=== PATIENT | male | born 1980 | race Two or more races ===

== ENCOUNTER 2019-09-24 03:38 | Emergency (ER) | payer BC, SELFPAY ==
--- OUTSIDE RECORDS SUMMARY | 2019-09-24 03:40 | XMS REPORT | Continuity of Care Document ---
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 Mur taza Mussaji Nongonococcal Active Problem 02/14/2019 Murta za urethritis (EMORY) Mus kelley due to Chlamydia trachomatis BMI Active Problem 02/14/2019 Danial 25.0-25.9,adult Muss raine Folliculitis Active Diagnosis 12/26/2018 Murtaz a Mussaji Screening for STD Active Diagnosis 12/26/2018 M urtaza (sexually Mussaji transmitted disease) BMI Active Diagnosis 12/26/2018 Danial 26.0-26.9,adult Muss raine Facial rash Active Diagnosis 12/26/2018 Danial Mussaji Elevated blood Active Diagnosis 12/21/2017 Murt aza pressure (not Mussaj i hypertension) Dermatitis Active Diagnosis 12/21/2017 Danial Mussaji Penile lesion Active Diagnosis 02/14/2019 Murta za Mussaji Itching with Active Diagnosis 02/14/2019 Murtaz a irritation Mussaji Rash Active Diagnosis 02/14/2019 Dainal Mussaji BMI Active Diagnosis 02/14/2019 Danial 27.0-27.9,adult Muss raine Medications Medication Details Route Status Patient Ordering Order Source Instructions Provider Date Clotrimazole-Be 1 application Externally Active 1-0.05 % Mussaji Danial tamethasone to affected Externally Alvarez ji area Twice a day Acyclovir 1 tablet Orally Active 400 MG Orally Mussaji Danial three times a Mussaji day (tid) Bactroban 1 application Externally Active 2 % Externally Mussaji Danial to affected Three times a Mussaj i area day Triamcinolone 1 application Externally Active 0.1 % Mussaji M urtaza Acetonide to affected Externally Mussaji area twice a day (bid) Azithromycin 2 tablets Orally Active 500 MG Orally Mussaji Mur taza all at once Mussaji Valacyclovir 2 tablet Orally Active 1 GM Orally Mussaji Murtaz a HCl Q12 hrs Mussaji Medrol (Benjamin) as directed Orally Active 4 mg Orally as Mussaji Danial directed Mussaji Benadryl 1 capsule as Orally Active 25 MG Orally Mussaji Murta za needed twice a day Mussaji (bid) as needed (prn) Nystatin-Triamc 1 application Externally Active 808169-4.1 Mussaji Danial inolone to affected UNIT/GM Mussaji area Externally Twice a day Allergies, Adverse Reactions, Alerts Substance Category Reaction Severity Reaction Status Date Comments S ource type Reported N.K.D.A. Adverse Info Not Adverse Murt aza Reaction Available Reaction 9 Muss raine Immunizations No Data Provided for This Section Results No Data Provided for This Section Pathology Reports No Data Provided for This Section Diagnostic Reports No Data Provided for This Section Consultation Notes No Data Provided for This Section Discharge Summaries No Data Provided for This Section History and Physicals No Data Provided for This Section Vital Signs Vital Sign Value Date Comments Source Heart Rate 78 02/01/2019 Danial Mussaji Diastolic (mm Hg) 78 02/01/2019 Danial Mu ssaji Systolic (mm Hg) 135 02/01/2019 Danial Mus kelley Temperature Oral (F) 98 F 02/01/2019 Danial Mussaji Weight 165 02/01/2019 Danial Mussaji Height 65 02/01/2019 Danial Mussaji Heart Rate 78 12/17/2018 Danial Mussaji Diastolic (mm Hg) 88 12/17/2018 Danial Mu ssaji Systolic (mm Hg) 139 12/17/2018 Danial Mus kelley Temperature Oral (F) 98.5 F 12/17/2018 Danial Mussaji Weight 157 12/17/2018 Danial Mussaji Height 65 12/17/2018 Danial Mussaji Heart Rate 75 11/09/2017 Danial Mussaji Diastolic (mm Hg) 106 11/09/2017 Danial Mu ssaji Systolic (mm Hg) 163 11/09/2017 Danial Mus kelley Temperature Oral (F) 98.3 F 11/09/2017 Danial Mussaji Weight 156 11/09/2017 Danial Peterson Height 65 11/09/2017 Danial Peterson Encounters No Data Provided for This Section Procedures No Data Provided for This Section Assessment and Plan No Data Provided for This Section Plan of Care No Data Provided for This Section Social History No Data Provided for This Section Family History No Data Provided for This Section Advance Directives No Data Provided for This Section Functional Status No Data Provided for This Section
--- OUTSIDE RECORDS SUMMARY | 2019-09-24 03:41 | XMS REPORT ---
:1980 Author Organization [employer] Care Team Providers Name Role Phone Danial Peterson Provider Role Unavailable Allergies, Adverse Reactions, Alerts Substance Reaction Event Type N.K.D.A. Info Not Available Non Drug Allergy Problems Problem Type Condition Code Onset Dates Condition Statu s Problem Nongonococcal urethritis (EMORY) due 099.41 Active to Chlamydia trachomatis Assessment Elevated blood pressure (not R03.0 Active hypertension) Problem BMI 25.0-25.9,adult Z68.25 Active Assessment BMI 25.0-25.9,adult Z68.25 Active Assessment Dermatitis L30.9 Active Medications Medication Code Code Instructions Start End Status Dosage System Date Date Azithromycin [facility] 16237021721 500 MG Orally Active 2 tablets all at once Triamcinolone [facility] 07312440746 0.1 % Active 1 appl ication Acetonide Externally to affected twice a day area (bid) Vital Signs Date/Time: November 09, 2017 Cardiac Monitoring Heart Rate 75 /min Blood Pressure Diastolic 106 mm Hg Blood Pressure Systolic 163 mm Hg Temperature 98.3 F BMI 25.96 Index Weight 156 lbs Height 65 in Results No Known Results Summary Purpose [employer] Submission
--- OUTSIDE RECORDS SUMMARY | 2019-09-24 03:41 | XMS REPORT ---
:1980 Author Organization [employer] Care Team Providers Name Role Phone Danial Peterson Provider Role Unavailable Allergies, Adverse Reactions, Alerts Substance Reaction Event Type N.K.D.A. Info Not Available Non Drug Allergy Problems Problem Type Condition Code Onset Dates Condition Statu s Assessment Penile lesion N48.9 Active Problem Nongonococcal urethritis (EMORY) due 099.41 Active to Chlamydia trachomatis Problem BMI 25.0-25.9,adult Z68.25 Active Assessment HSV-1 infection B00.9 Active Assessment Itching with irritation L29.9 Acti ve Assessment Rash R21 Active Assessment BMI 27.0-27.9,adult Z68.27 Active Medications Medication Code Code Instructions Start End Status Dosage System Date Date Valacyclovir HCl ND 80206632606 1 GM Orally Q12 Act timmy 2 tablet hrs Medrol (Benjamin) NDC 0 4 mg Orally as Active as d irected directed Benadryl ND 69380089052 25 MG Orally Active 1 caps ule as twice a day needed (bid) as needed (prn) Bactroban ND 32438696519 2 % Externally Active 1 a pplication Three times a to affecte d day area Acyclovir ND 53255211640 400 MG Orally Active 1 ta blet three times a day (tid) Triamcinolone ND 71802785729 0.1 % Active 1 appl ication Acetonide Externally to affected twice a day area (bid) Nystatin-Triamci ND 31662652247 883625-7.1 Active 1 application nolone UNIT/GM to affected Externally area Twice a day Clotrimazole-Bet ND 64505143009 1-0.05 % Active 1 application amethasone Externally to affecte d Twice a day area Vital Signs Date/Time: Feb 01, 2019 Cardiac Monitoring Heart Rate 78 /min Blood Pressure Diastolic 78 mm Hg Blood Pressure Systolic 135 mm Hg Temperature 98 F BMI 27.45 Index Weight 165 lbs Height 65 in Results No Known Results Summary Purpose [employer] Submission
--- OUTSIDE RECORDS SUMMARY | 2019-09-24 03:41 | XMS REPORT ---
:1980 Author Organization [employer] Care Team Providers Name Role Phone Nicholas Danial Provider Role Unavailable Allergies, Adverse Reactions, Alerts Substance Reaction Event Type N.K.D.A. Info Not Available Non Drug Allergy Problems Problem Type Condition Code Onset Dates Condition Statu s Assessment HSV-1 infection B00.9 Active Problem Nongonococcal urethritis (EMORY) due 099.41 Active to Chlamydia trachomatis Problem BMI 25.0-25.9,adult Z68.25 Active Assessment Folliculitis L73.9 Active Assessment Screening for STD (sexually Z11.3 Active transmitted disease) Assessment BMI 26.0-26.9,adult Z68.26 Active Assessment Facial rash R21 Active Medications Medication Code Code Instructions Start End Status Dosage System Date Date Clotrimazole-Bet [facility] 33571049096 1-0.05 % Active 1 application amethasone Externally to affecte d Twice a day area Acyclovir ND 67113324498 400 MG Orally Active 1 ta blet three times a day (tid) Bactroban ND 35164841185 2 % Externally Active 1 a pplication Three times a to affecte d day area Triamcinolone ND 22810348676 0.1 % Active 1 appl ication Acetonide Externally to affected twice a day area (bid) Vital Signs Date/Time: Dec 17, 2018 Cardiac Monitoring Heart Rate 78 /min Blood Pressure Diastolic 88 mm Hg Blood Pressure Systolic 139 mm Hg Temperature 98.5 F BMI 26.12 Index Weight 157 lbs Height 65 in Results Name Result Date Reference Range Unit Abnormali ty Flag RPR, Rfx Qn RPR/Confirm TP ----RPR Non Reactive [id number] Non Reactive HSV 1 and 2-Specific Ab, IgG w/Rfx CT,NG, and TV, BERRY urine Summary Purpose eClinicalWorks Submission
[2019-09-24] MEDS ORDERED: LIDOCAINE 1% MPF 5 ML VIAL ONE (04:18)
[2019-09-24] MEDS ORDERED: MORPHINE 4 MG/ML SYR ONE ×2 (04:18→05:04)
[2019-09-24] MEDS ORDERED: TERBUTALINE SULF 1 MG/1ML ONE (04:19)
[2019-09-24] MEDS ORDERED: ONDANSETRON 4 MG/2 ML VIAL ONE (04:19)
[2019-09-24] MEDS ORDERED: NA CHLORIDE 0.9% 1,000 ML ONE ×2 (04:19→05:03)
[2019-09-24 04:34] LABS: Absolute Lymphocytes (CBC) 2.1 K/uL (0.7-4.9); Basophils % 0.8 % (0-1.3); Hematocrit 53.7 % (39.6-49.0); Lymphocytes % 25.3 % (15.3-44.8); MPV 8.2 fL (7.6-11.3); RBC Red Blood Cell Count 6.23 M/uL (4.33-5.43)
[2019-09-24 04:46] LABS: Albumin 4.9 g/dL (3.4-5.0); Bilirubin Total 1.3 mg/dL (0.2-1.0); Potassium 3.6 mmol/L (3.5-5.1); Protein, Total 7.7 g/dL (6.4-8.2)
[2019-09-24 05:08] LABS: Barbiturates NEGATIVE (NEGATIVE); Benzodiazepines NEGATIVE (NEGATIVE); Cocaine NEGATIVE (NEGATIVE); METHAMPHETAM NEGATIVE (NEGATIVE); Methadone NEGATIVE (NEGATIVE); Opiates POSITIVE (NEGATIVE); Phencyclidine NEGATIVE (NEGATIVE); THC Cannibis NEGATIVE (NEGATIVE)
[2019-09-24 05:10] LABS: Urine Blood TRACE (NEG); Urine Glucose NEGATIVE (NEG); Urine Protein NEGATIVE (NEG); Urine Specific Gravity 1.025 (1.005-1.030)
[2019-09-24] MEDS ORDERED: LIDOCAINE 2% MPF 5 ML VIAL ONE (05:27)
[2019-09-24] MEDS ORDERED: CEFAZOLIN/SWI 1gm 1 GM/10 ML SYR ONE (05:46)
--- NOTE | 2019-09-24 05:47 | EDPHYS ---
Physician Documentation [facility] Name: Doug Peck Age: 38 yrs Sex: Male : 1980 Arrival Date: 09/24/2019 Time: 03:39 Bed 5 Private MD: ED Physician Daniel Huff HPI: 09/23 04:06 This 38 yrs old Male presents to ER via Ambulatory with complaints of Penile luci Problem. 04:06 The patient presents with penile pain, erection. Onset: The symptoms/episode luci began/occurred 4 hour(s) ago. Modifying factors: The symptoms are alleviated by nothing, the symptoms are aggravated by nothing. Associated signs and symptoms: The patient has no apparent associated signs or symptoms. Severity of symptoms: At their worst the symptoms were moderate, in the emergency department the symptoms are unchanged. The patient has not experienced similar symptoms in the past. Historical: - Allergies: 03:51 No Known Allergies; rv - Home Meds: 03:51 None [Active]; rv - PMHx: 03:51 None; rv - PSHx: 03:51 Cholecystectomy; rv - Immunization history:: Adult Immunizations not up to date, Last tetanus immunization: < 5 years ago Flu vaccine is not up to date. It has been more than one year since last vaccine. - Social history:: Smoking status: Patient/guardian denies using tobacco, the patient reports quitting approximately 20 years ago. - Family history:: not pertinent. ROS: 04:06 Constitutional: Negative for fever, chills, and weight loss, Eyes: Negative for injury, luci pain, redness, and discharge, ENT: Negative for injury, pain, and discharge, Neck: Negative for injury, pain, and swelling, Cardiovascular: Negative for chest pain, palpitations, and edema, Respiratory: Negative for shortness of breath, cough, wheezing, and pleuritic chest pain, Abdomen/GI: Negative for abdominal pain, nausea, vomiting, diarrhea, and constipation, Back: Negative for injury and pain, MS/Extremity: Negative for injury and deformity, Skin: Negative for injury, rash, and discoloration, Neuro: Negative for headache, weakness, numbness, tingling, and seizure, Psych: Negative for depression, anxiety, suicide ideation, homicidal ideation, and hallucinations, Allergy/Immunology: Negative for hives, rash, and allergies, Endocrine: Negative for neck swelling, polydipsia, polyuria, polyphagia, and marked weight changes, Hematologic/Lymphatic: Negative for swollen nodes, abnormal bleeding, and unusual bruising. 04:06 : Positive for penile pain, of the head of penis and shaft of penis, priapism. Exam: 04:06 Constitutional: This is a well developed, well nourished patient who is awake, alert, luci and in no acute distress. Head/Face: Normocephalic, atraumatic. Eyes: Pupils equal round and reactive to light, extra-ocular motions intact. Lids and lashes normal. Conjunctiva and sclera are non-icteric and not injected. Cornea within normal limits. Periorbital areas with no swelling, redness, or edema. ENT: Nares patent. No nasal discharge, no septal abnormalities noted. Tympanic membranes are normal and external auditory canals are clear. Oropharynx with no redness, swelling, or masses, exudates, or evidence of obstruction, uvula midline. Mucous membranes moist. Neck: Trachea midline, no thyromegaly or masses palpated, and no cervical lymphadenopathy. Supple, full range of motion without nuchal rigidity, or vertebral point tenderness. No Meningismus. Chest/axilla: Normal chest wall appearance and motion. Nontender with no deformity. No lesions are appreciated. Cardiovascular: Regular rate and rhythm with a normal S1 and S2. No gallops, murmurs, or rubs. Normal PMI, no JVD. No pulse deficits. Respiratory: Lungs have equal breath sounds bilaterally, clear to auscultation and percussion. No rales, rhonchi or wheezes noted. No increased work of breathing, no retractions or nasal flaring. Abdomen/GI: Soft, non-tender, with normal bowel sounds. No distension or tympany. No guarding or rebound. No evidence of tenderness throughout. Back: No spinal tenderness. No costovertebral tenderness. Full range of motion. Skin: Warm, dry with normal turgor. Normal color with no rashes, no lesions, and no evidence of cellulitis. MS/ Extremity: Pulses equal, no cyanosis. Neurovascular intact. Full, normal range of motion. Neuro: Awake and alert, GCS 15, oriented to person, place, time, and situation. Cranial nerves II-XII grossly intact. Motor strength 5/5 in all extremities. Sensory grossly intact. Cerebellar exam normal. Normal gait. Psych: Awake, alert, with orientation to person, place and time. Behavior, mood, and affect are within normal limits. 04:06 : Male external genitalia: tenderness, that is moderate, penile erection x 4 hours. Vital Signs: 03:48 BP 159 / 107; Pulse 89; Resp 19; Temp 98.2; Pulse Ox 100% ; Weight 74.84 kg; Height 5 rv ft. 5 in. (165.10 cm); 04:30 BP 159 / 94; Pulse 103; Resp 17; Pulse Ox 99% on R/A; rv 05:15 BP 168 / 87; Pulse 117; Resp 17; Pulse Ox 100% on R/A; rv 06:00 BP 153 / 89; Pulse 111; Resp 17; Pulse Ox 100% on 2 lpm NC; rv 03:48 Body Mass Index 27.46 (74.84 kg, 165.10 cm) rv Procedures: 05:47 Nerve block: (digital) of dorsal penile, block , lido without epi 4 cc each side. [facility] Performed sterile prep and straight needle aspiration, 12.5 cc of blood, dark, each side, no comps. still mild firmness noted, discussed transfer with patient, patient understands. MDM: 03:41 Patient medically screened. [facility] 04:10 Differential diagnosis: UTI, urinary retention, priapism. Data reviewed: vital signs, [facility] nurses notes, lab test result(s), urinalysis. Data interpreted: gambling monitor: rate is 89 beats/min, rhythm is normal sinus rhythm. 05:03 Counseling: I had a detailed discussion with the patient and/or guardian regarding: the [facility] historical points, exam findings, and any diagnostic results supporting the discharge/admit diagnosis, lab results. ED course: no pseudoephrine in er or the hospital, 2 x 0.5 ml SQ of terbutaline given, 2 liters NS and 2 liters N. no urolog on callC also administered. 09/23 04:06 Order name: CBC with Diff; Complete Time: 04:42 [facility] 09/23 04:06 Order name: Comprehensive Metabolic Panel; Complete Time: 04:51 [facility] 09/23 04:06 Order name: UDS; Complete Time: 05:39 [facility] 09/23 05:05 Order name: Urine Dipstick--Ancillary (enter results); Complete Time: 05:39 ar5 09/23 04:06 Order name: Urine Dipstick-Ancillary (obtain specimen); Complete Time: 05:06 [facility] 09/23 04:11 Order name: Dressing - Wound; Complete Time: 04:24 [facility] 09/23 04:11 Order name: Gloves, Sterile; Complete Time: 04:24 [facility] 09/23 04:11 Order name: Setup Suture Tray; Complete Time: 04:24 [facility] 09/23 04:44 Order name: Oxygen; Complete Time: 05:01 [facility] Administered Medications: 04:24 Drug: Zofran (Ondansetron) 4 mg Route: IVP; Site: right antecubital; rv 05:02 Follow up: Response: No adverse reaction rv 04:25 Drug: NS 0.9% 1000 ml Route: IV; Rate: 1 bolus; Site: right antecubital; rv 05:02 Follow up: IV Status: Completed infusion; IV Intake: 1000ml rv 04:25 Drug: Terbutaline 0.5 mg Route: Sub-Q; Site: abdomen; rv 05:02 Follow up: Response: No adverse reaction rv 04:25 Drug: morphine 4 mg {Note: RASS 0.} Route: IVP; Site: right antecubital; rv 05:02 Follow up: Response: No adverse reaction; Pain is decreased; RASS: Alert and Calm (0) rv 04:36 Not Given (not available): Terbutaline 100 mcg/kg PO once luci 05:01 Drug: Terbutaline 0.5 mg Route: Sub-Q; Site: abdomen; rv 05:54 Follow up: Response: No adverse reaction rv 05:01 Drug: NS 0.9% 1000 ml Route: IV; Rate: 1 bolus; Site: right antecubital; rv 05:54 Follow up: IV Status: Completed infusion; IV Intake: 1000ml rv 05:01 Drug: morphine 4 mg Route: IVP; Site: right antecubital; rv 06:58 Follow up: Response: No adverse reaction bp 05:48 Drug: Ancef 1 grams Route: IVPB; Site: right antecubital; rv 05:53 Follow up: IV Status: Completed infusion rv 06:58 Drug: Lidocaine (1 %) 5 ml {Note: AT B/S FOR PROVIDER.} Volume: 5 ml; Route: bp Infiltration; 07:01 Not Given (n/a): Pseudoephedrine 120 mg PO once rv Disposition: 09/24/19 05:47 Transfer ordered to [facility]. Diagnosis are Priapism, Priapism, unspecified. - Reason for transfer: Higher level of care. - Accepting physician is to [facility]. - Condition is Stable. - Problem is new. - Symptoms have improved. Signatures: Dispatcher [employer] EDDaniel Jackson MD MD cha Peltier, Brian, RN RN Wil Treviño, RN RN rv Corrections: (The following items were deleted from the chart) 07:18 05:47 09/24/2019 05:47 Transfer ordered to [facility]. bp Diagnosis is Priapism; Priapism, unspecified. Reason for transfer: Higher level of care. Accepting physician is to [facility]. Condition is Stable. Problem is new. Symptoms have improved. luci
--- NOTE | 2019-09-24 05:47 | ER ---
Nurse's Notes [facility] Name: Doug Peck Age: 38 yrs Sex: Male : 1980 Arrival Date: 09/24/2019 Time: 03:39 Bed 5 Private MD: Diagnosis: Priapism;Priapism, unspecified Presentation: 09/23 03:48 Chief complaint: Patient states: 1030PM LAST NIGHT I WORKED OUT AND HAD SEX WITH MY rv GIRLFRIEND. SINCE THEN MY PENIS WON'T GO DOWN. COMPLAINING OF PAIN. PATIENT USED NEEDLE TO PUNCTURE THE PENIS. Coronavirus screen: Proceed with normal triage. Ebola Screen: No symptoms or risks identified at this time. Initial Sepsis Screen: Does the patient meet any 2 criteria? No. Patient's initial sepsis screen is negative. Does the patient have a suspected source of infection? No. Patient's initial sepsis screen is negative. Risk Assessment: Do you want to hurt yourself or someone else? Patient reports no desire to harm self or others. Onset of symptoms was September 23, 2019 at 22:30. 03:48 Method Of Arrival: Ambulatory rv 03:48 Acuity: DEBRA 4 rv Triage Assessment: 03:51 General: Appears uncomfortable, Behavior is calm, cooperative. Pain: Complains of pain rv in GENITAL. EENT: No signs and/or symptoms were reported regarding the EENT system. Neuro: Level of Consciousness is awake, alert, obeys commands, Oriented to person, place, time, situation. Cardiovascular: Patient's skin is warm and dry. Respiratory: Airway is patent. : ERECTED AND PAINFUL. Historical: - Allergies: 03:51 No Known Allergies; rv - Home Meds: 03:51 None [Active]; rv - PMHx: 03:51 None; rv - PSHx: 03:51 Cholecystectomy; rv - Immunization history:: Adult Immunizations not up to date, Last tetanus immunization: < 5 years ago Flu vaccine is not up to date. It has been more than one year since last vaccine. - Social history:: Smoking status: Patient/guardian denies using tobacco, the patient reports quitting approximately 20 years ago. - Family history:: not pertinent. Screenin:53 Abuse screen: Denies threats or abuse. Denies injuries from another. Nutritional rv screening: No deficits noted. Tuberculosis screening: No symptoms or risk factors identified. Fall Risk None identified. Assessment: 06:03 Reassessment: ASSISTED DR TAVARES ON DRAINING THE CORPUS CAVERNOSUM. PATIENT TOLERATED rv WELL THE PROCEDURE. ERECTION DECREASED BUT NOT TOTALLY. 06:32 Reassessment: REPORT GIVEN TO CHELSY ER CHARGE NURSE. rv 06:57 Reassessment: RECD REPORT FROM KAMILA LLANES. 38YO HM P/W PRIAPISM. TRANSFER IN PROCESS FOR bp UROLOGY. 07:16 Reassessment: EMS AT B/S, PT MAGUI. bp Vital Signs: 03:48 BP 159 / 107; Pulse 89; Resp 19; Temp 98.2; Pulse Ox 100% ; Weight 74.84 kg; Height 5 rv ft. 5 in. (165.10 cm); 04:30 BP 159 / 94; Pulse 103; Resp 17; Pulse Ox 99% on R/A; rv 05:15 BP 168 / 87; Pulse 117; Resp 17; Pulse Ox 100% on R/A; rv 06:00 BP 153 / 89; Pulse 111; Resp 17; Pulse Ox 100% on 2 lpm NC; rv 03:48 Body Mass Index 27.46 (74.84 kg, 165.10 cm) rv ED Course: 03:39 Patient arrived in ED. ds1 03:41 Daniel Tavares MD is Attending Physician. luci 03:48 Wil Rubio, RN is Primary Nurse. rv 03:51 Triage completed. rv 03:53 Arm band placed on Patient placed in the treatment room, on a stretcher, Patient rv notified of wait time. 03:53 Patient has correct armband on for positive identification. Pulse ox on. NIBP on. rv 04:15 Inserted saline lock: 18 gauge in right antecubital area, using aseptic technique. rv Blood collected. 04:15 Initial lab(s) drawn, by me, sent to lab. rv 07:17 No provider procedures requiring assistance completed. Patient transferred, IV remains bp in place. Administered Medications: 04:24 Drug: Zofran (Ondansetron) 4 mg Route: IVP; Site: right antecubital; rv 05:02 Follow up: Response: No adverse reaction rv 04:25 Drug: NS 0.9% 1000 ml Route: IV; Rate: 1 bolus; Site: right antecubital; rv 05:02 Follow up: IV Status: Completed infusion; IV Intake: 1000ml rv 04:25 Drug: Terbutaline 0.5 mg Route: Sub-Q; Site: abdomen; rv 05:02 Follow up: Response: No adverse reaction rv 04:25 Drug: morphine 4 mg {Note: RASS 0.} Route: IVP; Site: right antecubital; rv 05:02 Follow up: Response: No adverse reaction; Pain is decreased; RASS: Alert and Calm (0) rv 04:36 Not Given (not available): Terbutaline 100 mcg/kg PO once luci 05:01 Drug: Terbutaline 0.5 mg Route: Sub-Q; Site: abdomen; rv 05:54 Follow up: Response: No adverse reaction rv 05:01 Drug: NS 0.9% 1000 ml Route: IV; Rate: 1 bolus; Site: right antecubital; rv 05:54 Follow up: IV Status: Completed infusion; IV Intake: 1000ml rv 05:01 Drug: morphine 4 mg Route: IVP; Site: right antecubital; rv 06:58 Follow up: Response: No adverse reaction bp 05:48 Drug: Ancef 1 grams Route: IVPB; Site: right antecubital; rv 05:53 Follow up: IV Status: Completed infusion rv 06:58 Drug: Lidocaine (1 %) 5 ml {Note: AT B/S FOR PROVIDER.} Volume: 5 ml; Route: bp Infiltration; 07:01 Not Given (n/a): Pseudoephedrine 120 mg PO once rv Intake: 05:02 IV: 1000ml; Total: 1000ml. rv 05:54 IV: 1000ml; Total: 2000ml. rv Outcome: 05:47 ER care complete, transfer ordered by . [facility] 07:17 Transferred by ground EMS Transfer form completed. bp 07:17 Condition: stable 07:17 Instructed on the need for transfer. 07:18 Patient left the ED. bp Signatures: Daniel Tavares MD MD cha Sanford, Demi ds1 Kd Han, MARIO ALBERTO RN bp Wil Rubio RN RN rv
[2019-09-24 08:02] VITALS: TEMP 98.2
[2019-09-24 08:05] VITALS: O2SAT 100
[2019-09-24 08:06] VITALS: BP 153/89
== END 2019-09-24 07:18 | disposition short-term general hospital (02) ==
LOC: ER 03:38
DX: N48.30 Priapism, unspecified (principal)
CPT/HCPCS: 36415; 64450; 80053; 80307; 81003; 85025; 96361; 96372; 96374; 96375; 99285; J0690; J2405; J3105; J7030